=== PATIENT | female | born 1950 ===

== ENCOUNTER 2018-04-28 10:04 | Outpatient (CLI) | payer OTHER | END 2018-04-28 10:14 | disposition home or self-care (01) | LOC: MAMO-SONO 10:04 | DX: Z12.31 Encounter for screening mammogram for malignant neoplasm of breast (principal); Z87.898 Personal history of other specified conditions; N60.11 Diffuse cystic mastopathy of right breast; N60.12 Diffuse cystic mastopathy of left breast ==